=== PATIENT | female | born 1935 | race Caucasian/White ===

== ENCOUNTER 2017-08-24 20:47 | Inpatient (IN) | payer MEDICAID ==
[~2017-08-24] VITALS: Ht 152.4 cm; Wt 54.5 kg
[2017-08-24 22:18] LABS: ALBUMIN 3.8 g/dL (3.4-5.0); ALKALINE PHOSPHATASE 96 U/L (46-116); ALT/SGPT 31 U/L (14-59); AST/SGOT 19 U/L (15-37); BASOPHIL % 0.6 % (0-2); BILIRUBIN TOTAL 0.31 mg/dL (0.20-1.00); CALCIUM 9.5 mg/dL (8.5-10.1); CARBON DIOXIDE 30.1 mmol/L (21-32); CHLORIDE SERUM 103 mmol/L (98-107); CHOLESTEROL 147 mg/dL (<200); CREATININE SERUM 0.7 mg/dL (0.6-1.0); GLUCOSE SERUM 155 mg/dL (74-106); PLATELET COUNT 256 x10^3mcL (130-400); SODIUM SERUM 141 mmol/L (136-145); TOTAL PROTEIN, SERUM 7.6 g/dL (6.4-8.2)
[2017-08-24 22:24] LABS: POTASSIUM SERUM 2.9 mmol/L (3.5-5.1)
[2017-08-24] MEDS ORDERED: AMBIEN10 MG PO (22:51)
[2017-08-24] MEDS ORDERED: HCTZ/LISINOPRIL1 TA1 PO (22:52)
[2017-08-24 23:54] VITALS: Ht 152.4 cm; Wt 54.5 kg
[2017-08-24 23:55] VITALS: BP 158/69
[2017-08-25 02:43] LABS: CALCIUM 8.9 mg/dL (8.5-10.1); CARBON DIOXIDE 26.6 mmol/L (21-32); CHLORIDE SERUM 106 mmol/L (98-107); CREATININE SERUM 0.7 mg/dL (0.6-1.0); GLUCOSE SERUM 107 mg/dL (74-106); POTASSIUM SERUM 3.4 mmol/L (3.5-5.1); SODIUM SERUM 141 mmol/L (136-145)
[2017-08-25 02:45] LABS: PLATELET COUNT 243 x10^3mcL (130-400)
[2017-08-25 04:32] LABS: T3 TOTAL 1.11 ng/mL
[2017-08-25 04:35] LABS: MAGNESIUM 2.2 mg/dL (1.8-2.4); PHOSPHOROUS 3.9 mg/dL (2.5-4.9)
[2017-08-25 04:37] LABS: FREE T4 1.2 ng/dL (0.76-1.46); FREE THYROXINE INDEX 3.6 ug/dL (1.4-4.5); T4(THYROXINE) 10.5 ug/dL (4.7-13.3)
[2017-08-25 06:06] VITALS: BP 120/60
[2017-08-25 10:11] VITALS: BP 146/63
[2017-08-25 13:08] VITALS: BP 126/66
[2017-08-25 14:26] LABS: AMPHETAMINE QUAL UR NONE DETECTED (NEG <=1000)
[2017-08-25 18:19] VITALS: BP 150/64
[2017-08-25 20:52] VITALS: BP 143/64
[2017-08-26 05:59] VITALS: BP 113/52
[2017-08-26 06:53] LABS: BASOPHIL % 0.7 % (0-2); CALCIUM 8.6 mg/dL (8.5-10.1); CARBON DIOXIDE 25.7 mmol/L (21-32); CHLORIDE SERUM 110 mmol/L (98-107); CREATININE SERUM 0.6 mg/dL (0.6-1.0); GLUCOSE SERUM 88 mg/dL (74-106); PLATELET COUNT 225 x10^3mcL (130-400); POTASSIUM SERUM 4.2 mmol/L (3.5-5.1); RED CELL DISTRIBUTION WIDTH 13.7 % (11.5-14.5); SODIUM SERUM 142 mmol/L (136-145)
[2017-08-26 09:30] VITALS: BP 116/52
[2017-08-26 13:18] VITALS: BP 167/74
[2017-08-26] MEDS ORDERED: SYN5 PO (14:41)
[2017-08-26] MEDS ORDERED: K10 PO (14:42)
[2017-08-26 14:54] LABS: UA SPECIFIC GRAVITY <=1.005 (1.005-1.035); microscopic required? YES; urine erythrocyte TRACE (NEGATIVE)
[2017-08-26 16:16] VITALS: BP 150/74
[2017-08-26 16:54] VITALS: BP 150/74
[2017-08-26 17:15] VITALS: BP 162/71
== END 2017-08-26 18:10 | disposition home or self-care (01) | DRG 425 ==
LOC: ED 20:47 → DU 23:09 → ED 23:41 → DU 23:56
PROVIDERS: Emergency Medicine Emergency Medical Services; ADMIT Family Medicine
DX: E87.6 Hypokalemia (principal); G93.41 Metabolic encephalopathy; K85.90 Acute pancreatitis without necrosis or infection, unspecified; I10 Essential (primary) hypertension; E03.9 Hypothyroidism, unspecified; Z68.23 Body mass index [BMI] 23.0-23.9, adult
CPT/HCPCS: 83880; 84439; J2405; J3480; J7030; Q0092